=== PATIENT | male | born 2000 | race African-American/Black ===

== ENCOUNTER 2022-03-09 05:22 | Emergency (ER) | payer MEDICAID ==
[~2022-03-09] VITALS: Ht 177.8 cm; Wt 68.2 kg
[2022-03-09 08:06] VITALS: BP 131/79
[2022-03-09] MEDS ORDERED: KETOROLAC TROMETHAMINE 60 MG/2 ML VIAL IM ONE (08:30)
== END 2022-03-09 09:07 | disposition home or self-care (01) ==
LOC: EMS 05:26
DX: M18.31 Unilateral post-traumatic osteoarthritis of first carpometacarpal joint, right hand (principal)
CPT/HCPCS: 99283; 73110; 29125; 96372; J1885